=== PATIENT | female | born 1960 | race Hispanic/Latino ===

== ENCOUNTER 2017-04-02 11:09 | Emergency (ER) | payer SELFPAY ==
[2017-04-02] MEDS ORDERED: KETOROLAC TROMETHAMINE 30MG/ML ONE (11:56)
[2017-04-02] MEDS ORDERED: ONDANSETRON HCL 4 MG/2 ML VIAL ONE (11:56)
[2017-04-02] MEDS ORDERED: SODIUM CHLORIDE 0.9% 1000ML 1,000 ML IV ONE (11:56)
[2017-04-02 12:04] LABS: BILIRUBIN,URINE NEGATIVE (NEGATIVE); COLOR,URINE YELLOW (YELLOW); GLUCOSE, URINE (UA) NEGATIVE (NEGATIVE); KETONES,URINE NEGATIVE (NEGATIVE); LEUKOCYTE ESTERASE ,URINE NEGATIVE (NEGATIVE); NITRATE,URINE POSITIVE (NEGATIVE); OCCULT BLOOD,URINE TRACE-INTACT (NEGATIVE); PH,URINE 6.5 (5.0-8.0); PROTEIN,URINE NEGATIVE (NEGATIVE); UROBILINOGEN,URINE 0.2 mg/dL (0.2-1.0)
[2017-04-02 12:06] LABS: BASOPHILS % (AUTO) 0.6 % (0.0-5.0); EOSINOPHILS % (AUTO) 1.6 % (0.0-8.0); HEMATOCRIT 37.9 % (36-48); LYMPHOCYTES % (AUTO) 27.5 % (21.0-51.0); MEAN CORPUSCULAR HEMOGLOBIN 31.3 pg (27.0-33.0); MEAN CORPUSCULAR HGB CONC 34.9 g/dL (32.0-36.0); MEAN CORPUSCULAR VOLUME 89.7 fL (79-99); MONOCYTES % (AUTO) 6.8 % (3.0-13.0); NEUTROPHILS % (AUTO) 63.5 % (40.0-77.0); PLATELET COUNT (AUTO) 268 K/uL (130-400); RED BLOOD CELL COUNT(AUTO) 4.23 MIL/uL (4.00-5.50); RED CELL DISTRIBUTION WIDTH 13.7 % (11.0-15.5); WHITE BLOOD COUNT (AUTO) 6.2 K/uL (4.8-10.8)
[2017-04-02 12:11] LABS: CREATININE 0.5 mg/dL (0.5-1.5); POTASSIUM 4.4 mmol/L (3.5-5.1)
[2017-04-02 12:16] LABS: APPEARANCE,URINE SLIGHTLY CLOUDY (CLEAR)
[2017-04-02 12:19] LABS: BACTERIA,URINE Many /HPF (None Seen); RBC,URINE 0-1 /HPF (0-1); SQUAMOUS EPITHELIAL CELL,UR Rare /LPF (0-2); WBC,URINE 0-1 /HPF (0-1)
== END 2017-04-02 13:14 | disposition home or self-care (01) ==
LOC: EDH 11:09
DX: N20.0 Calculus of kidney (principal)
CPT/HCPCS: 36415; 74176; 80048; 81001; 85025; 96361; 96374; 96375; 99285; J1885; J2405; J7030

== ENCOUNTER 2017-06-03 18:56 | Emergency (ER) | payer SELFPAY ==
[2017-06-03] MEDS ORDERED: TRAMADOL HCL 50 MG TABLET ONE (19:31)
[2017-06-03] MEDS ORDERED: IBUPROFEN 600 MG TABLET ONE (19:31)
== END 2017-06-03 20:32 | disposition home or self-care (01) ==
LOC: EDH 18:56
DX: K13.79 Other lesions of oral mucosa (principal)

== ENCOUNTER 2018-10-10 06:03 | Emergency (ER) | payer SELFPAY ==
[2018-10-10] MEDS ORDERED: ONDANSETRON HCL 4 MG/2 ML VIAL ONE (06:29)
[2018-10-10] MEDS ORDERED: KETOROLAC TROMETHAMINE 30MG/ML ONE (06:29)
[2018-10-10 06:39] LABS: BASOPHILS % (AUTO) 0.5 % (0.0-5.0); EOSINOPHILS % (AUTO) 2.2 % (0.0-8.0); LYMPHOCYTES % (AUTO) 28.1 % (21.0-51.0); MEAN CORPUSCULAR HEMOGLOBIN 31.7 pg (27.0-33.0); MEAN CORPUSCULAR HGB CONC 34.1 g/dL (32.0-36.0); MEAN CORPUSCULAR VOLUME 92.8 fL (79-99); MONOCYTES % (AUTO) 6.3 % (3.0-13.0); NEUTROPHILS % (AUTO) 62.9 % (40.0-77.0); NUCLEATED RED BLOOD CELLS 0.1 % (0.0-0.19); PLATELET COUNT (AUTO) 224 K/uL (130-400); RED CELL DISTRIBUTION WIDTH 14.2 % (11.0-15.5)
[2018-10-10 06:43] LABS: CREATININE 0.8 mg/dL (0.5-1.5); POTASSIUM 3.6 mmol/L (3.5-5.1)
[2018-10-10 06:45] LABS: APPEARANCE,URINE CLEAR (CLEAR); BILIRUBIN,URINE NEGATIVE (NEGATIVE); COLOR,URINE YELLOW (YELLOW); GLUCOSE, URINE (UA) NEGATIVE (NEGATIVE); KETONES,URINE NEGATIVE (NEGATIVE); LEUKOCYTE ESTERASE ,URINE NEGATIVE (NEGATIVE); NITRATE,URINE NEGATIVE (NEGATIVE); OCCULT BLOOD,URINE NEGATIVE (NEGATIVE); PROTEIN,URINE NEGATIVE (NEGATIVE); UROBILINOGEN,URINE 0.2 mg/dL (0.2-1.0)
[2018-10-10 06:48] LABS: ALBUMIN 3.7 g/dL (3.5-5.0); BILIRUBIN,DIRECT 0.1 mg/dL (0.0-0.3); BILIRUBIN,TOTAL 0.4 mg/dL (0.2-1.0); TOTAL PROTEIN, SERUM 7.5 g/dL (6.0-8.3)
[2018-10-10 06:51] LABS: INR 0.91 (0.85-1.15); PARTIAL THROMBOPLASTIN TIME 23.5 SEC (26.3-35.5); PROTHROMBIN TIME 9.6 SEC (9.6-11.6)
== END 2018-10-10 08:58 | disposition home or self-care (01) ==
LOC: EDH 06:03
DX: N23 Unspecified renal colic (principal); Z87.442 Personal history of urinary calculi; Z90.710 Acquired absence of both cervix and uterus; Z90.49 Acquired absence of other specified parts of digestive tract
CPT/HCPCS: 36415; 74176; 80048; 80076; 81003; 83690; 84484; 85025; 85610; 85730; 93005; 96374; 96375; 99285; J1885; J2405

== ENCOUNTER 2023-11-26 03:00 | Emergency (ER) | payer BC ==
[~2023-11-26] VITALS: Ht 162.6 cm; Wt 87.1 kg
[~2023-11-26 03:00] MED LIST: NAPR-1180 PO
[2023-11-26] MEDS: PANTOPrazole 40 MG/VIAL IVP ONE (06:31)
[2023-11-26] MEDS: ondanSETRON 4MG INJ IVP ONE (06:31)
[2023-11-26] MEDS: LACTATED RINGERS 1000ML 1,000 ML IV ONE (06:31)
[2023-11-26 06:37] LABS: BASOPHILS # (AUTO) 0.02 K/uL (0.00-0.20); BASOPHILS % (AUTO) 0.2 % (0.0-5.0); EOSINOPHILS # (AUTO) 0.01 K/uL (0.00-0.70); EOSINOPHILS % (AUTO) 0.1 % (0.0-8.0); HEMATOCRIT 41.8 % (36-48); IMMATURE GRANULOCYTE ABSOLUTE 0.07 K/uL (0-1); LYMPHOCYTES # (AUTO) 0.4 K/uL (1.0-4.8); LYMPHOCYTES % (AUTO) 4.3 % (21.0-51.0); MEAN CORPUSCULAR HEMOGLOBIN 30.8 pg (27.0-33.0); MEAN CORPUSCULAR HGB CONC 34.4 g/dL (32.0-36.0); MEAN CORPUSCULAR VOLUME 89.3 fL (79-99); MONOCYTES # (AUTO) 0.5 K/uL (0.1-1.0); NEUTROPHILS % (AUTO) 89.6 % (40.0-77.0); PLATELET COUNT (AUTO) 259 K/uL (130-400); RED BLOOD CELL COUNT(AUTO) 4.68 MIL/uL (4.00-5.50); RED CELL DISTRIBUTION WIDTH 13.2 % (11.0-15.5)
[2023-11-26 06:48] LABS: ALBUMIN 4.1 g/dL (3.5-5.0); BILIRUBIN,TOTAL 0.7 mg/dL (0.2-1.0); CREATININE 0.8 mg/dL (0.5-1.0); POTASSIUM 3.7 mmol/L (3.5-5.1); TOTAL PROTEIN, SERUM 7.9 g/dL (6.0-8.3)
[2023-11-26] MEDS: MAG/ALUM/SIMETH 30 ML UDCUP PO ONE (06:53)
[2023-11-26] MEDS: LIDOCAINE HCL 2% VISCOUS 15 ML UDCUP PO ONE (06:53)
[2023-11-26 07:43] VITALS: BP 142/61; PULSE 84; RESP 22; TEMP 97.9; O2SAT 98
[2023-11-26 08:16] LABS: APPEARANCE,URINE CLEAR (CLEAR); BILIRUBIN,URINE NEGATIVE (NEGATIVE); COLOR,URINE LIGHT-YELLOW (YELLOW); GLUCOSE, URINE (UA) NEGATIVE (NEGATIVE); KETONES,URINE NEGATIVE (NEGATIVE); LEUKOCYTE ESTERASE ,URINE NEGATIVE Leu/uL (NEGATIVE); NITRATE,URINE 2+ (NEGATIVE); OCCULT BLOOD,URINE NEGATIVE (NEGATIVE); PROTEIN,URINE NEGATIVE (NEGATIVE); UROBILINOGEN,URINE 0.2 mg/dL (0.2-1.0)
[2023-11-26 08:24] LABS: ADD UA MICROSCOPIC YES
[2023-11-26 09:00] LABS: BACTERIA,URINE MANY /HPF (None Seen); MUCUS,URINE FEW LPF (None Seen); SQUAMOUS EPITHELIAL CELL,UR RARE /HPF (0-2)
== END 2023-11-26 08:12 | disposition home or self-care (01) ==
LOC: EDH 03:00
DX: K52.9 Noninfective gastroenteritis and colitis, unspecified (principal); E78.00 Pure hypercholesterolemia, unspecified; Z90.49 Acquired absence of other specified parts of digestive tract; Z90.710 Acquired absence of both cervix and uterus
CPT/HCPCS: 99284; 96374; 96361; 96375; 82550; 84484; 80053; 83690; 85025; 87086 ×3; 87186 ×2; 81001; 36415; 93005; J7120; J2405; J2470

== ENCOUNTER 2024-02-27 11:31 | Emergency (ER) | payer BC ==
[~2024-02-27] VITALS: Ht 157.5 cm; Wt 90.7 kg
--- NOTE | 2024-02-27 11:45 | ERN ---
ED Note History of Present Illness Stated Complaint: SORE THROAT AND GENERAL BODY ACHES Chief Complaint: Sore Throat Time Seen by MD: 11:40 Dictation: PATIENT IS A 63-YEAR-OLD FEMALE COMING IN TODAY WITH FLU-LIKE SYMPTOMS TO INCLUDE MALAISE, SORE THROAT WITH PAINFUL SWALLOWING, CLEAR RHINITIS AND DRY COUGH FOR 3-4 DAYS. NO NAUSEA VOMITING NO DIARRHEA NO LOSS OF TASTE OR SMELL. SHE HAS BEEN HERE IN THE LAST COUPLE OF DAYS BOTH OF HER SONS WHO WERE DIAGNOSED WITH INFLUENZA A. SHE HAS NOT BEEN TO SEE HER PRIMARY CARE DOCTOR. Allergies: Coded Allergies: No Known Drug Allergies (Unverified Allergy, Unknown, 04/12/16) Home Meds Active Scripts Ibuprofen (Ibuprofen 800 mg Tab) 800 Mg Tab, 800 MG PO Q8H PRN for fever or pain, #30 TAB 0 Refills Prov:TAWNY SOLO MACHINE SWEEPER BRUSH MAKER 02/27/24 Amoxicillin/Potassium Clav (Amox Tr-K Clv 875-125 mg Tab) 875 Mg-125 Mg Tablet, 1 EACH PO BID for 7 Days, #14 TAB 0 Refills Prov:TAWNY SOLO MACHINE SWEEPER BRUSH MAKER 02/27/24 Naproxen (Naprosyn) 500 Mg Tablet, 500 MG PO BIDPC PRN for PAIN for 5 Days, #10 TAB 0 Refills take with meal, note precautions, use for pain or pleuritic chest pain Prov:NATHEN ANSARI 11/18/22 Past Medical History Past Medical History: Hypothyroid Additional Past Medical Hx: THYROID Surgical History: Hysterectomy, Cholecystectomy Surgical History Other: D & C History: Not Applicable RN Note Reviewed/Agreed w/PFSH: Yes Review of System Dictation CONSTITUTIONAL: NEGATIVE EXCEPT FOR HPI HEAD/FACE: NEGATIVE EXCEPT FOR HPI EENT: NEGATIVE EXCEPT FOR HPI CLEAR RHINITIS WITH SORE THROAT PAINFUL SWALLOWING RESPIRATORY: NEGATIVE EXCEPT FOR HPI DRY PERSISTENT COUGH GASTROINTESTINAL/ABDOMINAL: NEGATIVE EXCEPT FOR HPI GENITOURINARY: NEGATIVE EXCEPT FOR HPI MUSCULOSKELETAL: NEGATIVE EXCEPT FOR HPI MALAISE INTEGUMENTARY: NEGATIVE EXCEPT FOR HPI NEUROLOGICAL/PSYCH: NEGATIVE EXCEPT FOR HPI HEMATOLOGIC/LYMPHATIC: NEGATIVE EXCEPT FOR HPI ALL SYSTEMS NEGATIVE, EXCEPT NOTED ABOVE. 13 POINT REVIEW OF SYSTEMS ASSESSED AND ALL NEGATIVE EXCEPT FOR ABOVE. Initial Vital Sign VS Vital Signs Date Time Temp Pulse Resp B/P (MAP) Pulse Ox O2 Delivery O2 Flow Rate FiO2 02/27/24 11:33 101.8 117 20 156/85 99 Room Air 0 02/27/24 13:11 21 Physical Exam Dictation VITAL SIGNS REVIEWED GENERAL APPEARANCE: ALERT, ORIENTED X 3, NO ACUTE DISTRESS, WELL DEVELOPED, NOURISHED. HEAD AND FACE: NON-TRAUMATIC. EYES: PERRL, PINK CONJUNCTIVAS, EYELID NO TRAUMA, ANTERIOR CHAMBER WITH ARCUS SENILIS. EARS: PINNAS INTACT AND NO SIGNS OF TRAUMA OR ERYTHEMA EAR CANALS CLEAR AND NO DISCHARGE TM NO ERYTHEMA NOSE: CLEAR DISCHARGE, NO BLEEDING. OROPHARYNX: MOUTH NORMAL, TONGUE PINK, PHARYNX CLEAR MODERATE PHARYNGEAL ERYTHEMA, TONSILS NO EXUDATES, NO ABSCESSES NOTED, MUCOUS MEMBRANE MOIST UVULA MIDLINE, VOICE IS CLEAR NECK: SUPPLE, NON-TENDER, NO THYROMEGALY, NO MASSES, NO JVD, NO BRUITS BREAST:DEFERRED CHEST:NO TENDERNESS, NO CREPITUS, NO PARADOXICAL MOVEMENT, NO RETRACTIONS LUNGS:CLEAR, WELL-VENTILATED, SYMMETRIC, NO RALES, NO WHEEZING, NO RHONCHI, NO STRIDOR, GOOD BREATH SOUNDS BILATERALLY HEART: REGULAR RATE, REGULAR RHYTHM, NO MURMUR, NO GALLOPS VASCULAR: NO PERIPHERAL EDEMA, ABDOMEN: SOFT, POSITIVE BOWEL SOUNDS, NONDISTENDED, NO GUARDING, NONTENDER, NO REBOUND, NO MASSES NO HEPATOMEGALY, NO SPLENOMEGALY, NO PIERSON'S SIGN, NO HERNIAS. RECTAL: DEFERRED GENITAL: DEFERRED NEUROLOGICAL: NORMAL SPEECH, MOTOR FUNCTION INTACT, SENSORY FUNCTION INTACT MUSCULOSKELETAL: NECK NONTENDER, FULL RANGE OF MOTION, BACK NONTENDER, FULL RANGE OF MOTION, EXTREMITIES: NONTENDER, FULL RANGE OF MOTION SKIN: COLOR PINK, DRY, NO TURGOR, NO RASH, NO LACERATIONS, NO ABRASIONS, NO CONTUSIONS. LYMPHATIC: DEFERRED Results (Laboratory/Radiology) Laboratory/Radiology Laboratory Tests Test 02/27/24 12:08 Influenza Type A Antigen Negative For Type A Influenza Type B Antigen Negative For Type B SARS-CoV-2 Antigen (Rapid) PRESUMPTIVE NEGATIVE Group A Streptococcus Rapid negative (NEGATIVE) Labs Reviewed?: Yes ED Course ED Course Orders Procedure Category Date Status Time Acetaminophen 500mg PHA 02/27/24 Complete Tab (Tylenol 500mg T 12:00 Covid19 (Sars Antigen LAB 02/27/24 Complete Rapid) 11:42 Rapid (Group A Strep) LAB 02/27/24 Complete 11:42 Influenza Type A & B, LAB 02/27/24 Complete Rapid 12:08 Current Medications Medications (Trade) Dose Ordered Sig/Bret Route PRN Reason Start Time Stop Time Status Last Admin Dose Admin Acetaminophen (TYLenol 500MG TAB) 1,000 mg ONCE ONCE PO 02/27/24 12:00 02/27/24 12:01 DC 02/27/24 12:26 Vital Signs Date Time Temp Pulse Resp B/P (MAP) Pulse Ox O2 Delivery O2 Flow Rate FiO2 02/27/24 13:11 99.0 97 18 138/89 100 Room Air* 0 21 02/27/24 12:26 101.8 02/27/24 11:33 101.8 117 20 156/85 99 Room Air 0 1305, LABS UNREMARKABLE PATIENT WILL BE TREATED FOR ACUTE PHARYNGITIS UNSPECIFIED WITH AUGMENTIN TOLD TO SEE HER DOCTOR Medical Decision Making MDM MEDICAL DISCHARGE MAKING BASED ON SWABS FOR FLU COVID AND STREP. ALL SWABS NEGATIVE PATIENT WILL BE TREATED FOR ACUTE PHARYNGITIS UNSPECIFIED AND FEVER [id number] P.O. B.I.D. FOR SEVEN DAYS AND IBUPROFEN. DX & DISP Disposition: Discharge Departure Impression: Primary Impression: Acute pharyngitis, unspecified Additional Impression: Fever Condition: Stable Scripts Ibuprofen (Ibuprofen 800 mg Tab) 800 Mg Tab 800 MG PO Q8H PRN for fever or pain, #30 TAB 0 Refills Prov: TAWNY SOLO NP 02/27/24 Amoxicillin/Potassium Clav (Amox Tr-K Clv 875-125 mg Tab) 875 Mg-125 Mg Tablet 1 EACH PO BID for 7 Days, #14 TAB 0 Refills Prov: TAWNY SOLO NP 02/27/24 Additional Instructions: FOLLOW-UP WITH PRIMARY CARE PROVIDER IN 1 TO 2 DAYS. TAKE MEDICATIONS DIRECTED HERE IN THE EMERGENCY ROOM. OKAY TO CONTINUE HOME MEDICATIONS UNLESS OTHERWISE DISCUSSED DURING YOUR VISIT IN THE EMERGENCY ROOM TODAY. RETURN TO YOUR NEAREST EMERGENCY ROOM IF SYMPTOMS WORSEN OR IF THERE IS NO IMPROVEMENT. CALL 911 IF YOU NEED IMMEDIATE ASSISTANCE. TAKE TYLENOL OR MOTRIN [id number] NEEDED AND IF NO CONTRAINDICATIONS ARE PRESENT. INCREASE ORAL HYDRATION. A WOUND CULTURE OR URINE CULTURE WAS ORDERED HERE IN THE EMERGENCY ROOM DEPARTMENT PLEASE FOLLOW-UP WITH PRIMARY CARE PROVIDER AND ADVISE THEM TO GET REPEAT PORTS FROM OUR FACILITY. IF YOU HAD ANY TATO WRAP/SPLINTS THAT WERE APPLIED HERE, PLEASE DO NOT REMOVE THEM UNTIL YOU SEE YOUR PRIMARY CARE OR SPECIALTY. TAKE ANTIBIOTICS DIRECTED UNTIL GONE., TAKE IBUPROFEN NEEDED FOR FEVER PAIN WITH FOOD. INCREASE YOUR FLUIDS, SEE YOUR PRIMARY CARE DOCTOR WEDNESDAY OR WEDNESDAY FOR FOLLOW UP AND MANAGE Referrals: LEAH DESHPANDE PA-C (PCP) Time of Disposition: 13:05 I have reviewed the case, and I agree with, Diagnosis and Plan I performed this substantive portion of this visit. I have reviewed and personally made and approve the management plan that is documented in the note by myself or the STARR. I acknowledge full responsibility for the patient's management plan. TAWNY SOLO NP Feb 27, 2024 11:45 KAVITA MUSA MD Feb 28, 2024 13:47
[2024-02-27] MEDS: acetaMINOPHEN 500 MG TABLET PO ONE (12:26)
[2024-02-27 12:44] LABS: RAPID GROUP A STREP negative (NEGATIVE)
[2024-02-27 12:45] LABS: INFLUENZA TYPE A Negative For Type A (NEGATIVE); INFLUENZA TYPE B Negative For Type B (NEGATIVE)
[2024-02-27 13:00] LABS: COVID19 (SARS ANTIGEN RAPID) PRESUMPTIVE NEGATIVE (NEGATIVE)
[2024-02-27] MEDS ORDERED: AMOX1TAB16 PO (13:06)
[2024-02-27] MEDS ORDERED: IBUP-2077 PO (13:06)
[2024-02-27 13:11] VITALS: BP 138/89; PULSE 97; RESP 18; TEMP 99; O2SAT 100
== END 2024-02-27 13:18 | disposition home or self-care (01) ==
LOC: EDH 11:31
DX: J02.9 Acute pharyngitis, unspecified (principal); R50.9 Fever, unspecified; E03.9 Hypothyroidism, unspecified; Z20.822 Contact with and (suspected) exposure to COVID-19; Z90.49 Acquired absence of other specified parts of digestive tract; Z90.710 Acquired absence of both cervix and uterus
CPT/HCPCS: 87426; 87804; 87880; 99283

== ENCOUNTER 2024-08-19 14:23 | Emergency (ER) | payer BC ==
[~2024-08-19] VITALS: Ht 157.5 cm; Wt 90.3 kg
[~2024-08-19 14:23] MED LIST changes: +AMOX1TAB16 PO; +IBUP-2077 PO
[2024-08-19 14:29] VITALS: BP 177/71; PULSE 95; RESP 18; TEMP 99.1; O2SAT 99
--- NOTE | 2024-08-19 14:30 | ERN ---
ED Note History of Present Illness Stated Complaint: KNEE Chief Complaint: Knee Injury/Swelling Time Seen by MD: 14:26 Dictation: PATIENT IS A 64-YEAR-OLD FEMALE COMING IN TODAY WITH CHRONIC RIGHT KNEE PAIN WORSE THE LAST TWO DAYS. SHE SAID SHE HAS HAD FOR PAIN FOR SEVERAL MONTHS, SEES WHO TOLD HER SHE HAD DEGENERATIVE JOINT DISEASE AND NORMALLY GIVES HER INTRA-ARTICULAR INJECTIONS TO THE RIGHT KNEE. LAST INJECTION WAS IN JUNE 2024. SHE REMAINS AMBULATORY HOWEVER WALKS WITH A ANTALGIC GAIT. NO FEVER NO CHILLS. HE HAS HAD NO PRIOR KNEE SURGERY. Allergies: Coded Allergies: No Known Drug Allergies (Unverified Allergy, Unknown, 04/12/16) Home Meds Active Scripts Ibuprofen (Ibuprofen 800 mg Tab) 800 Mg Tab, 800 MG PO Q8H PRN for fever or pain, #30 TAB 0 Refills Prov:TAWNY SOLO PHYSICIAN EXECUTIVE 02/27/24 Amoxicillin/Potassium Clav (Amox Tr-K Clv 875-125 mg Tab) 875 Mg-125 Mg Tablet, 1 EACH PO BID for 7 Days, #14 TAB 0 Refills Prov:TAWNY SOLO PHYSICIAN EXECUTIVE 02/27/24 Naproxen (Naprosyn) 500 Mg Tablet, 500 MG PO BIDPC PRN for PAIN for 5 Days, #10 TAB 0 Refills take with meal, note precautions, use for pain or pleuritic chest pain Prov:NATHEN ANSARI 11/18/22 Past Medical History Past Medical History: Arthritis, High Cholesterol, Hypothyroid Additional Past Medical Hx: THYROID Surgical History: Hysterectomy, Cholecystectomy, Other Surgical History Other: d/c History: Not Applicable RN Note Reviewed/Agreed w/PFSH: Yes Review of System Dictation CONSTITUTIONAL: NEGATIVE EXCEPT FOR HPI HEAD/FACE: NEGATIVE EXCEPT FOR HPI EENT: NEGATIVE EXCEPT FOR HPI RESPIRATORY: NEGATIVE EXCEPT FOR HPI GASTROINTESTINAL/ABDOMINAL: NEGATIVE EXCEPT FOR HPI GENITOURINARY: NEGATIVE EXCEPT FOR HPI MUSCULOSKELETAL: NEGATIVE EXCEPT FOR HPI CHRONIC RIGHT MEDIAL KNEE PAIN INTEGUMENTARY: NEGATIVE EXCEPT FOR HPI NEUROLOGICAL/PSYCH: NEGATIVE EXCEPT FOR HPI HEMATOLOGIC/LYMPHATIC: NEGATIVE EXCEPT FOR HPI ALL SYSTEMS NEGATIVE, EXCEPT NOTED ABOVE. 13 POINT REVIEW OF SYSTEMS ASSESSED AND ALL NEGATIVE EXCEPT FOR ABOVE. Initial Vital Sign VS Vital Signs Date Time Temp Pulse Resp B/P (MAP) Pulse Ox O2 Delivery O2 Flow Rate FiO2 08/19/24 14:26 99.1 95 18 177/71 99 Room Air 0 08/19/24 14:29 21 Physical Exam Dictation VITAL SIGNS REVIEWED GENERAL APPEARANCE: ALERT, ORIENTED X 3, MODERATE ACUTE DISTRESS, WELL DEVELOPE D, NOURISHED. HEAD AND FACE: NON-TRAUMATIC. OBESE EYES: PERRL, PINK CONJUNCTIVAS, EYELID NO TRAUMA, ANTERIOR CHAMBER WITH ARCUS SENILIS. EARS: PINNAS INTACT AND NO SIGNS OF TRAUMA OR ERYTHEMA EAR CANALS CLEAR AND NO DISCHARGE TM NO ERYTHEMA NOSE: NO DISCHARGE, NO BLEEDING. OROPHARYNX: MOUTH NORMAL, TONGUE PINK, PHARYNX CLEAR,NO ERYTHEMA, TONSILS NO EXUDATES, NO ABSCESSES NOTED, MUCOUS MEMBRANE MOIST NECK: SUPPLE, NON-TENDER, NO THYROMEGALY, NO MASSES, NO JVD, NO BRUITS BREAST:DEFERRED CHEST:NO TENDERNESS, NO CREPITUS, NO PARADOXICAL MOVEMENT, NO RETRACTIONS LUNGS:CLEAR, WELL-VENTILATED, SYMMETRIC, NO RALES, NO WHEEZING, NO RHONCHI, NO STRIDOR, GOOD BREATH SOUNDS BILATERALLY HEART: REGULAR RATE, REGULAR RHYTHM, NO MURMUR, NO GALLOPS VASCULAR: NO PERIPHERAL EDEMA, ABDOMEN: SOFT, POSITIVE BOWEL SOUNDS, NONDISTENDED, NO GUARDING, NONTENDER, NO REBOUND, NO MASSES NO HEPATOMEGALY, NO SPLENOMEGALY, NO PIERSON'S SIGN, NO HERNIAS. RECTAL: DEFERRED GENITAL: DEFERRED NEUROLOGICAL: NORMAL SPEECH, MOTOR FUNCTION INTACT, SENSORY FUNCTION INTACT MUSCULOSKELETAL: NECK NONTENDER, FULL RANGE OF MOTION, BACK NONTENDER, FULL RANGE OF MOTION, EXTREMITIES: MODERATE RIGHT MEDIAL KNEE PAIN WITH PALPITATION, POSITIVE CREPITATION WITH A ROM. BRACE IN PLACE. SKIN: COLOR PINK, DRY, NO TURGOR, NO RASH, NO LACERATIONS, NO ABRASIONS, NO CONTUSIONS. LYMPHATIC: DEFERRED Results (Laboratory/Radiology) Laboratory/Radiology 1500/RIGHT KNEE X-RAY DEGENERATIVE CHANGES ONLY NO FRACTURE Labs Reviewed?: Yes ED Course ED Course Orders Procedure Category Date Status Time Ketorolac 60mg/2ml PHA 08/19/24 Complete (Toradol 60mg/2ml) 14:30 Dexamethasone 4mg/Ml PHA 08/19/24 Complete 1ml Vial (Dexametha 14:30 Hydrocodone/Apap PHA 08/19/24 Complete 5/325 ([place] 5/325mg) 14:30 Knee 3vws Rt RAD 08/19/24 Taken 14:30 Current Medications Medications (Trade) Dose Ordered Sig/Bret Route PRN Reason Start Time Stop Time Status Last Admin Dose Admin Acetaminophen/ Hydrocodone Bitart (NORco 5/325MG) 1 tab ONCE ONCE PO 08/19/24 14:30 08/19/24 14:31 DC 08/19/24 14:39 Dexamethasone Sodium Phosphate (dexaMETHasone 4MG/ML 1ML VIAL) 8 mg ONCE ONCE IM 08/19/24 14:30 08/19/24 14:31 DC 08/19/24 14:39 Ketorolac Tromethamine (toRADol 60MG/ 2ML) 60 mg ONCE ONCE IM 08/19/24 14:30 08/19/24 14:35 DC 08/19/24 14:39 Vital Signs Date Time Temp Pulse Resp B/P (MAP) Pulse Ox O2 Delivery O2 Flow Rate FiO2 08/19/24 14:29 99.1 95 18 177/71 99 Room Air* 0 21 08/19/24 14:26 99.1 95 18 177/71 99 Room Air 0 Medical Decision Making [facility] 1502/MEDICAL DECISION-MAKING BASED ON EMPIRIC TREATMENT OF CHRONIC KNEE PAIN AND X-RAY. X-RAY DEMONSTRATES SEVERE DJD RIGHT KNEE. DISCHARGED HOME WITH TYLENOL WITH CODEINE TOLD SEE HER DOCTOR ON WEDNESDAY. DX & DISP Disposition: Discharge Departure Impression: Primary Impression: Right knee DJD Additional Impression: Chronic pain of right knee Condition: Stable Scripts Acetaminophen with Codeine (Acetaminophen-Cod #3 Tablet) 300 Mg-30 Mg Tablet 1 TAB PO Q4H PRN for MODERATE TO SEVERE PAIN, #12 TAB 0 Refills Prov: TAWNY SOLO PHYSICIAN EXECUTIVE 08/19/24 Additional Instructions: Follow-up with primary care provider in 1 to 2 days. Take medications as dire cted here in the emergency room. Okay to continue home medications unless otherwise discussed during your visit in the emergency room today. Return to your nearest emergency room if symptoms worsen or if there is no improvement. Call 911 if you need immediate assistance. Take Tylenol or Motrin [id number] as needed and if no contraindications are present. Increase oral hydration. A wound culture or urine culture was ordered here in the emergency room department please follow-up with primary care provider and advise them to get repeat ports from our facility. If you had any [place]o wrap/splints that were applied here, please do not remove them until you see your primary care or specialty. Take Tylenol with codeine for severe pain. Warm compresses to right knee three to 4 times a day. See your orthopedic surgeon next week for management. Referrals: LEAH DESHPANDE PA-C (PCP) WINNIE SMALLWOOD MD Time of Disposition: 15:03 I have reviewed the case, and I agree with, Diagnosis and Plan TAWNY SOLO NP Aug 19, 2024 14:30
[2024-08-19] MEDS: HYDROcodone/APAP 5/325 1 TAB TABLET PO ONE (14:39)
[2024-08-19] MEDS: dexaMETHasone SOD PHOSPHATE 4 MG/ML 1ML VIAL IM ONE (14:39)
[2024-08-19] MEDS: ketOROlac 60 MG VIAL (30MG/ML) IM ONE (14:39)
[2024-08-19] MEDS ORDERED: ACET-2079 PO (15:04)
--- NOTE | 2024-08-19 15:21 | HMCIMG ---
EXAM: CR right Knee, 3 View. CLINICAL HISTORY: CHRONIC RIGHT ANTERIOR AND MEDIAL KNEE PAIN COMPARISON: None provided. FINDINGS: BONES: No fracture in the left knee. JOINTS: Moderate tricompartmental degenerative changes. SOFT TISSUES: The soft tissues are unremarkable. IMPRESSION: 1. No fracture or dislocation in the left knee. 2. Moderate tricompartmental degenerative changes. /[place]
== END 2024-08-19 15:25 | disposition home or self-care (01) ==
LOC: EDH 14:23
DX: M17.11 Unilateral primary osteoarthritis, right knee (principal); G89.29 Other chronic pain; M25.561 Pain in right knee; E03.9 Hypothyroidism, unspecified; E78.00 Pure hypercholesterolemia, unspecified; Z90.49 Acquired absence of other specified parts of digestive tract; Z90.710 Acquired absence of both cervix and uterus; Z79.899 Other long term (current) drug therapy
CPT/HCPCS: 99284; 73562; 96372 ×2; J1100; J1885